=== PATIENT | male | born 1990 | race African-American/Black ===

== ENCOUNTER 2023-09-12 12:54 | Emergency (ER) | payer OTHER, SELFPAY ==
--- NOTE | ~2023-09-12 | XR_ITS ---
Left Hand Technique: PA, oblique, and lateral views were obtained. Clinical History: A digit laceration Findings: No acute fracture or dislocation is seen. Osseous alignment is anatomic. Joint spaces are p reserved. Laceration of the distal aspect of the third digit noted. Impression: Laceration of the distal third digit. No osseous abnormality. Reviewed, dictated and finalized at location . Impression: Laceration of the distal third digit. No osseous abnormality.
[2023-09-12 12:55] VITALS: BP 168/82; PULSE 97; RESP 16; TEMP 36.8; O2SAT 100
[2023-09-12] MEDS: KETOROLAC 30 MG/ML VIAL (*BKC) IM (13:51)
[2023-09-12] MEDS: TETANUS,DIPHTHERIA,AC PERTUSSIS ADULT (0.5 ML) BOOSTRIX IM (13:52)
[2023-09-12] MEDS: HYDROcodone/acetaminophen (*CRX) 5-325 MG TABLET 1 TAB PO (13:53)
--- NOTE | 2023-09-12 14:01 | ED.GENADULT ---
HPI - General Adult General Chief complaint: Wound/Laceration Stated complaint: L middle finger injury Time Seen by Provider: 09/12/23 13:02 History of Present Illness HPI narrative: Jarvis Guillen is a 33 y/o male who presents today with reports of cutting his left middle finger on a knife at work today at about 1230. Still bleeding on arrival here. Related Data Allergies Allergy/AdvReac Type Severity Reaction Status Date / Time No Known Allergies Allergy Verified 09/12/23 12:59 Review of Systems Review of Systems: All systems reviewed & are unremarkable except as noted in HPI and below Exam Narrative: GENERAL: Well-appearing, well-nourished, and in no acute distress. HEAD: Normocephalic, atraumatic. EYES: PERRLA and EOMI. ENT: Nares clear, no rhinorrhea or epistaxis. Mucous membranes moist. Oropharynx without tonsillar hypertrophy exudate or other lesions. NECK: Supple. No adenopathy or masses. No carotid bruits or JVD CHEST: Clear to auscultation. No respiratory distress. No wheezes rales or rhonchi HEART: Regular rate and rhythm. No murmur heard. Normal peripheral pulses. ABDOMEN: Soft, nontender, nondistended, normal active bowel sounds. EXTREMITIES: Normal range of motion. No edema. avulsion to the pad of pt's left third phalanx SKIN: Warm, dry, no rash. NEURO: No focal deficits. Alert and oriented x3. PSYCH: Normal mood and affect. Course Vital Signs Vital signs: Vital Signs Temperature 36.8 C 09/12/23 12:55 Pulse Rate 97 09/12/23 12:55 Respiratory Rate 16 09/12/23 12:55 Blood Pressure 168/82 H 09/12/23 12:55 Pulse Oximetry 100 09/12/23 12:55 Oxygen Delivery Room Air 09/12/23 12:55 Temperature 36.7 C 09/12/23 16:41 Pulse Rate 88 09/12/23 16:41 Respiratory Rate 18 09/12/23 16:41 Blood Pressure 150/80 H 09/12/23 16:41 Pulse Oximetry 100 09/12/23 16:41 Oxygen Delivery Room Air 09/12/23 12:55 Procedures Nerve Block Nerve Block 1: Nerve block date: 09/12/23 Nerve block time: 14:27 Time out performed: Yes Local Anesthetic: lidocaine 2% Amount of anesthesia used (mL): 3 Side: left Nerve Blocks: digital Intraoral Nerve Block: other (Median nerve) Procedure Successful: Yes Patient Tolerated Procedure: well Complications: none Medical Decision Making MDM Narrative Medical decision making narrative: 33 y/o with avulsion/ laceration to the tip of his left middle distal phalanx/ no nail or bone involvement there is a pad still attached will likely suture down. plan to updated TDAP/ pain control/ and anesthetize wtih a digital block XR of left hand: Impression: Laceration of the distal third digit. No osseous abnormality. Patients finger prepped with Betadine and then digital block was completed and worked. I then irrigated his avulsion more with sterile saline 200 mls and Betadine Area started to ooze blood more/ pressure held for 5 minutes and continued to bleed Consulted with Dr. Garcia who recommended Surgicel but to remove Surgicel prior to attempting to suture down the skin flap Surgicel applied / pressure held for 5 mins - bleeding stopped , when the Surgicel was removed it restarted to bleed At this time the pt stated since the flap was only on by minimal skin we could clip this part off and keep the Surgicel in place More Surgicel placed, pressure held for 5 minutes and still oozing slightly / more Surgicel placed pressure held another 10 minutes and bleeding stopped. area was then covered in tipple antibiotic ointment/ Vaseline gauze / Kerlix / finger splint and gavino wrap Patient was given dressing supplies and dressing instructions Will d/c on Keflex prophylaxis Close follow up with PCP Plastics referral if needed Strict return precautions provided Medical Records Medical records reviewed: Yes I reviewed the external patient's medical records. Vital
[2023-09-12] MEDS: LIDOCAINE HCL 2% LOCAL INJ 20 ML VIAL INFILTRATE (14:40)
[2023-09-12] MEDS: CELLULOSE OXIDIZED 2 x 3 INCH 1 PKT XX (15:11)
--- NOTE | 2023-09-12 16:12 | PC.NURSE ---
Laceration repair completed. Pt tolerated well. tedre splint & dressing appliedphill NOVOA
[2023-09-12 16:41] VITALS: BP 150/80; PULSE 88; RESP 18; TEMP 36.7; O2SAT 100
== END 2023-09-12 16:43 | disposition home or self-care (01) ==
PROVIDERS: Emergency Provider Nurse Practitioner Family
DX: S61.213A Laceration without foreign body of left middle finger without damage to nail, initial encounter (principal); Z23 Encounter for immunization; W26.0XXA Contact with knife, initial encounter
CPT/HCPCS: 11042; 64450; 73130; 90471; 90715; 96372; 99283; A9270; J1885